=== PATIENT | female | born 1975 | race Caucasian/White ===

== ENCOUNTER 2017-01-03 18:58 | Inpatient (IN) | payer SELFPAY ==
[~2017-01-03] VITALS: Ht 156.2 cm; Wt 62.8 kg
[2017-01-03 23:20] VITALS: BP 178/92; PULSE 54; RESP 20; TEMP 98.1; O2SAT 99
[2017-01-03] MEDS ORDERED: NALOXONE HCL 0.4 MG/ML AMP IV PUSH PRN (23:30)
[2017-01-03] MEDS ORDERED: MORPHINE SULFATE 4 MG/ML INJ IV PUSH PRN (23:30)
[2017-01-03] MEDS ORDERED: SODIUM CHLORIDE 0.9% FLUSH 10 ML FLUSH IV FLUSH PRN (23:30)
[2017-01-03] MEDS ORDERED: ONDANSETRON HCL 4 MG/2 ML VIAL IVP PRN (23:30)
--- NOTE | 2017-01-03 23:32 | HHI.HP ---
HPI Service [facility] Primary Care Physician No Primary Care Physician Admission Diagnosis Diagnoses: Chief Complaint: left flank pain Travel History International Travel<30 Days: No Contact w/Intl Traveler <30 Da: No History of Present Illness 41 y/o female with a history of HTN (not on any medications), and self cathing for 20 years presented to the ED with complaints of left flank pain. Patient is Greek speaking, interpretation provided by her son in law. She states the pain is intermittent 10/10 in her left flank that radiates to her back. When the pain is really bad it causes her to be short of breath. She states the Dilaudid helped more with the pain then the morphine. She is from [place] and states after she had her son 20 years ago she had a kidney stone removed and was unable to urinate. She was told to straight cath and that was all she knows, she states she was never given a true diagnosis or reason on why she could not urinate. She denies any chest pain, sob, fever or chills. She does complain of dysuria at times when she straight caths. Review of Systems Except as stated in HPI: all other systems reviewed are Neg Past Family Social History Past Medical History HTN (not on any medication) Past Surgical History Appendectomy Kidney stone removal Reported Medications Reported Meds & Active Scripts Active No Active Prescriptions or Reported Medications Allergies: Coded Allergies: No Known Allergies (Unverified , 01/03/17) Active Ordered Medications Current Medications Medications (Trade) Dose Ordered Sig/Aakash Route Start Time Stop Time Status Last Admin (NS Flush) 2 ml UNSCH PRN IV FLUSH 01/03/17 23:30 (NS Flush) 2 ml BID IV FLUSH 01/04/17 09:00 (Zofran Inj) 4 mg Q6H PRN IVP 01/03/17 23:30 (Narcan Inj) 0.4 mg UNSCH PRN IV PUSH 01/03/17 23:30 Ceftriaxone Sodium 1000 mg/ Sodium Chloride 100 ml @ 200 mls/hr Q24H IV 01/04/17 19:00 (Flu (Quadrivalent) Vaccine Inj) 0.5 ml ONCE ONCE IM 01/05/17 10:00 01/05/17 10:01 (Dilaudid Pf Inj) 0.2 mg Q4H PRN IV PUSH 01/04/17 01:00 Family History Mom and dad: Heart disease and DM Social History Tobacco use: Cigars occasionally Alcohol use: Denies Physical Exam Vital Signs Vital Signs Date Time Temp Pulse Resp B/P (MAP) Pulse Ox O2 Delivery O2 Flow Rate FiO2 01/03/17 23:20 98.1 54 20 178/92 (120) 99 Physical Exam GENERAL: This is a well-nourished, well-developed patient, in mild amount of pain SKIN: No rashes, ecchymoses or lesions. Cool and dry. HEAD: Atraumatic. Normocephalic. EYES: Pupils equal round and reactive. ENT: Nose without bleeding, purulent drainage or septal hematoma.Airway patent. NECK: Trachea midline. No JVD or lymphadenopathy. Supple, nontender, no meningeal signs. CARDIOVASCULAR: Regular rate and rhythm without murmurs, gallops, or rubs. RESPIRATORY: Clear to auscultation. Breath sounds equal bilaterally. No wheezes , rales, or rhonchi. GASTROINTESTINAL: Abdomen soft, non-tender, nondistended. Left CVA tenderness MUSCULOSKELETAL: Extremities without clubbing, cyanosis, or edema. Negative Homans sign bilaterally. NEUROLOGICAL: Awake and alert. Motor and sensory grossly within normal limits. Normal speech. Caprini VTE Risk Assessment Caprini VTE Risk Assessment: No/Low Risk (score <= 1) Caprini Risk Assessment Model Point Value = 1 Point Value = 2 Point Value = 3 Point Value = 5 Age 41-60 Minor surgery BMI > 25 kg/m2 Swollen legs Varicose veins or History of unexplained or recurrent spontaneous Oral contraceptives or hormone replacement Sepsis (< 1 month) Serious lung disease, including pneumonia (< 1 month) Abnormal pulmonary function Acute myocardial infarction Congestive heart failure (< 1 month) History of inflammatory bowel disease Medical patient at bed rest Age 61-74 Arthroscopic surgery Major open surgery (> 45 min) Laparoscopic surgery (> 45 min) Malignancy Confined to bed (> 72 hours) Immobilizing plaster cast Central venous access Age >= 75 History of VTE Family history of VTE Factor V Leiden Prothrombin [id number] Lupus anticoagulant Anticardiolipin antibodies Elevated serum homocysteine Heparin-induced thrombocytopenia Other congenital or acquired thrombophilia Stroke (< 1 month) Elective arthroplasty Hip, pelvis, or leg fracture Acute spinal cord injury (< 1 month) Prophylaxis Regimen Total Risk Factor Score Risk Level Prophylaxis Regimen 0-1 Low Early ambulation 2 Moderate Order ONE of the following: *Sequential Compression Device (SCD) *Heparin 5000 units SQ BID 3-4 Higher Order ONE of the following medications: *Heparin 5000 units SQ TID *Enoxaparin/Lovenox 40 mg SQ daily (WT < 150 kg, CrCl > 30 mL/min) *Enoxaparin/Lovenox 30 mg SQ daily (WT < 150 kg, CrCl > 10-29 mL/min) *Enoxaparin/Lovenox 30 mg SQ BID (WT < 150 kg, CrCl > 30 mL/min) AND/OR *Sequential Compression Device (SCD) 5 or more Highest Order ONE of the following medications: *Heparin 5000 units SQ TID (Preferred with Epidurals) *Enoxaparin/Lovenox 40 mg SQ daily (WT < 150 kg, CrCl > 30 mL/min) *Enoxaparin/Lovenox 30 mg SQ daily (WT < 150 kg, CrCl > 10-29 mL/min) *Enoxaparin/Lovenox 30 mg SQ BID (WT < 150 kg, CrCl > 30 mL/min) AND *Sequential Compression Device (SCD) Assessment and Plan Problem List: (1) Acute kidney injury ICD Code: N17.9 - Acute kidney failure, unspecified (2) Hydronephrosis ICD Code: N13.30 - Unspecified hydronephrosis (3) HTN (hypertension) ICD Code: I10 - Essential (primary) hypertension Assessment and Plan 41 y/o female with a history of HTN (not on any medications), and self cathing for 20 years presented to the ED with complaints of left flank pain. Hydronephrosis, questionable bladder malignancy Abdominal CT reviewed and shows abnormal bladder, possible malignancy with dilation of ureter on the left and hydronephrosis. -Consult urology for recommendations -Pain management with IV Dilaudid -Cont to self cath Acute kidney injury, creatine 1.7, unknown baseline -IVF for hydration -Labs in AM UTI, suspect ecoli, abnormal UA with moderate leukocyte esterase -Rocephin IV -Urine culture pending HTN, chronic, uncontrolled, patient is not on any medications, possibly pain related -When pain is controlled, re evaluate for hypertensive medications DVT prophylaxis: SCDs Discussed Condition With Patient, RN and patients son in law Physician Certification 2 Midnight Certification Type: Admission for Inpatient Services Order for Inpatient Services The services are ordered in accordance with Medicare regulations or non- Medicare payer requirements, as applicable. In the case of services not specified as inpatient-only, they are appropriately provided as inpatient services in accordance with the 2-midnight benchmark. Estimated LOS (days): 3 days is the estimated time the patient will need to remain in the hospital, assuming treatment plan goals are met and no additional complications. Post-Hospital Plan: Home Kailee Valencia Jan 03, 2017 23:32
[2017-01-04] MEDS: SODIUM CHLOR 0.9% 1000 ML INJ 1,000 ML IV SCH ×3 (02:01→21:01)
[2017-01-04] MEDS: HYDROmorphone HCL PF 1 MG/ML VIAL IV PUSH PRN ×4 (02:02→17:40)
[2017-01-04 05:26] VITALS: BP 159/76; PULSE 64; RESP 17; TEMP 97.8; O2SAT 98
[2017-01-04 06:58] LABS: ALKALINE PHOSPHATASE 71 U/L (45-117); ALT (GPT) 18 U/L (10-53); TOTAL BILIRUBIN ADULT 0.3 MG/DL (0.2-1.0)
[2017-01-04 07:01] LABS: AST (GOT) 26 U/L (15-37); BICARBONATE 23.7 MEQ/L (21.0-32.0); BLOOD UREA NITROGEN 15 MG/DL (7-18); CHLORIDE 108 MEQ/L (98-107); GLOMERULAR FILTRATION RATE 37 ML/MIN (>89); POTASSIUM 4.9 MEQ/L (3.5-5.1); SODIUM (NA) 136 MEQ/L (136-145)
[2017-01-04 07:03] LABS: ANION GAP 4 MEQ/L (5-15)
[2017-01-04 07:15] LABS: AUTOMATED NEUTROPHIL # 4.7 TH/MM3 (1.8-7.7); BASOPHIL # 0.1 TH/MM3 (0-0.2); EOSINOPHIL # 0.4 TH/MM3 (0-0.4); EOSINOPHIL % 4.1 % (0.0-4.0); HEMATOCRIT 42.5 % (35.0-46.0); HEMO FLAGS DIFF FINAL; LYMPH % 33.4 % (9.0-44.0); MEAN CELL VOLUME 87.9 FL (80.0-100.0); MEAN CORPUSCULAR HEMOGLOBIN 29.6 PG (27.0-34.0); MEAN CORPUSCULAR HGB CONC 33.7 % (32.0-36.0); MONO % 9.7 % (0.0-8.0); NEUT % 51.8 % (16.0-70.0); PLATELET COUNT 251 TH/MM3 (150-450); RED BLOOD COUNT 4.83 MIL/MM3 (4.00-5.30); RED CELL DISTRIBUTION WIDTH 13.4 % (11.6-17.2)
[2017-01-04 07:58] VITALS: BP 148/87; PULSE 54; RESP 20; TEMP 98; O2SAT 98
[2017-01-04] MEDS: SODIUM CHLORIDE 0.9% FLUSH 10 ML FLUSH IV FLUSH SCH ×2 (09:00→21:01)
--- NOTE | 2017-01-04 10:48 | PD.CONS ---
HPI Service Urology Consult Requested By Kailee Valencia NP Reason for Consult Abnormal findings on CT scan Primary Care Physician No Primary Care Physician Diagnosis: (1) Acute kidney injury ICD Code: N17.9 - Acute kidney failure, unspecified (2) Hydronephrosis ICD Code: N13.30 - Unspecified hydronephrosis (3) HTN (hypertension) ICD Code: I10 - Essential (primary) hypertension History of Present Illness 41-year-old female with history hypertension and neurogenic bladder dysfunction was been managed with clean intermittent catheterization up to 4 times daily for the past 20 years who presented to the emergency room with acute onset left flank pain. Workup included a CT scan that demonstrated marketed right hydroureteronephrosis, mild left hydroureteronephrosis and bladder wall thickening. No definitive stones were seen. Patient was admitted for analgesic support and a urology consult placed to dressed the CT scan findings. Upon further questioning the patient reports that she had been worked up by a urologist for her voiding dysfunction and was diagnosed with neurogenic bladder dysfunction related to pathology involving her back. She has been able to easily perform clean intermittent catheterization 3-4 times daily over the past 20 years. She does have a history of renal lithiasis. She denies gross hematuria. Has been afebrile. Review of Systems Constitutional: DENIES: Fever, Night Sweats Cardiovascular: DENIES: Chest pain Gastrointestinal: COMPLAINS OF: Abdominal pain (left side) Genitourinary: DENIES: Hematuria Musculoskeletal: COMPLAINS OF: Back pain (bilateral but more intense on the left) Except as stated in HPI: all other systems reviewed are Neg Past Family Social History Past Medical History Neurogenic bladder Nephrolithiasis Hypertension Past Surgical History Status post kidney stone removal Reported Medications Refer to EMR Allergies: Coded Allergies: No Known Allergies (Unverified , 01/03/17) Active Ordered Medications Refer to EMR Family History Coronary artery disease Diabetes mellitus Social History Smokes cigars occasionally Denies alcohol use Denies illicit drug abuse Physical Exam Vital Signs Date Time Temp Pulse Resp B/P (MAP) Pulse Ox O2 Delivery O2 Flow Rate FiO2 01/04/17 07:58 98.0 54 20 148/87 (107) 98 01/04/17 05:26 97.8 64 17 159/76 (103) 98 01/03/17 23:20 98.1 54 20 178/92 (120) 99 Physical Exam GENERAL: This is a well-nourished, well-developed patient, in no apparent distress. SKIN: No rashes, ecchymoses or lesions. Cool and dry. HEAD: Atraumatic. Normocephalic. No temporal or scalp tenderness. EYES: Pupils equal round and reactive. Extraocular motions intact. No scleral icterus. No injection or drainage. ENT: Nose without bleeding, purulent drainage or septal hematoma. Throat without erythema, tonsillar hypertrophy or exudate. Uvula midline. Airway patent. NECK: Trachea midline. No JVD or lymphadenopathy. Supple, nontender, no meningeal signs. GASTROINTESTINAL: Abdomen soft, non-tender, nondistended. No hepato-splenomegaly , or palpable masses. No guarding. GENITOURINARY: No CVA tenderness MUSCULOSKELETAL: Extremities without clubbing, cyanosis, or edema. No joint tenderness, effusion, or edema noted. No calf tenderness. Negative Homans sign bilaterally. NEUROLOGICAL: Awake and alert. Cranial nerves II through XII intact. Motor and sensory grossly within normal limits. Five out of 5 muscle strength in all muscle groups. Normal speech. Lab results reviewed: Yes Laboratory Tests Test 01/04/17 05:36 White Blood Count 9.0 Red Blood Count 4.83 Hemoglobin 14.3 Hematocrit 42.5 Mean Corpuscular Volume 87.9 Mean Corpuscular Hemoglobin 29.6 Mean Corpuscular Hemoglobin Concent 33.7 Red Cell Distribution Width 13.4 Platelet Count 251 Mean Platelet Volume 9.7 Neutrophils (%) (Auto) 51.8 Lymphocytes (%) (Auto) 33.4 Monocytes (%) (Auto) 9.7 Eosinophils (%) (Auto) 4.1 Basophils (%) (Auto) 1.0 Neutrophils # (Auto) 4.7 Lymphocytes # (Auto) 3.0 Monocytes # (Auto) 0.9 Eosinophils # (Auto) 0.4 Basophils # (Auto) 0.1 CBC Comment DIFF FINAL Differential Comment Hematology Comments Blood Urea Nitrogen 15 Creatinine 1.55 Random Glucose 83 Total Protein 7.0 Albumin 3.0 Calcium Level 8.6 Alkaline Phosphatase 71 Aspartate Amino Transf (AST/SGOT) 26 Alanine Aminotransferase (ALT/SGPT) 18 Total Bilirubin 0.3 Sodium Level 136 Potassium Level 4.9 Chloride Level 108 Carbon Dioxide Level 23.7 Anion Gap 4 Estimat Glomerular Filtration Rate 37 Result Diagram: 01/04/17 0536 01/04/17 0536 Personally reviewed images: Yes Assessment and Plan Assessment and Plan Urologic impression: #1 bilateral hydroureteronephrosis, more significant on the right in comparison to the left #2 right hydroureteronephrosis appears to be chronic in nature #3 neurogenic bladder dysfunction #4 bladder wall thickening likely related to the neurogenic bladder dysfunction Plan: #1 keep patient nothing by mouth #2 patient scheduled for cystoscopy, bilateral retrograde pyelogram studies and bilateral ureteral stent placement today Lon Garcia MD Jan 04, 2017 10:48
[2017-01-04 11:59] VITALS: BP 178/92; PULSE 60; RESP 20; TEMP 98.4; O2SAT 96
[2017-01-04] MEDS ORDERED: ROCURONIUM INJ 50 MG/5 ML SYRINGE IV PUSH ONE (12:00)
[2017-01-04] MEDS ORDERED: IOHEXOL 300 MG/ML 50 ML BTL (for RAD DIAG) OTHER ONE (12:00)
[2017-01-04] MEDS ORDERED: PROPOFOL 200 MG/20 ML AMP IV ONE (12:00)
[2017-01-04] MEDS ORDERED: LIDOCAINE HCL 1% PF 5 ML AMPULE OTHER ONE (12:00)
[2017-01-04] MEDS ORDERED: ESMOLOL HCL 100 MG/10 ML VIAL IV ONE (12:00)
[2017-01-04] MEDS ORDERED: ePHEDrine/NS 50 MG/5 ML SYR IV ONE (12:00)
[2017-01-04] MEDS ORDERED: ONDANSETRON HCL 4 MG/2 ML VIAL IV PUSH ONE (12:00)
[2017-01-04] MEDS ORDERED: MIDAZOLAM HCL 2 MG/2 ML VIAL IV ONE (12:00)
[2017-01-04] MEDS ORDERED: DEXAMETHASONE SOD PHOS 4 MG/ML VIAL IV ONE (12:00)
[2017-01-04] MEDS ORDERED: PHENYLEPH/NS 1000 MCG/10 ML SYR IV ONE (12:00)
[2017-01-04] MEDS ORDERED: LACTATED RINGER'S 1000 ML IV PRN (12:30)
[2017-01-04] MEDS ORDERED: INSULIN HUMAN REGULAR 1,000 UNITS/10 ML VIAL SQ PRN (12:30)
[2017-01-04] MEDS ORDERED: METOPROLOL TARTRATE 25 MG TAB PO PRN (12:30)
[2017-01-04] MEDS ORDERED: CHLORHEXIDINE GLUCONATE 2 % 1 PACK (2 CLOTHS) TOPICAL PRN (12:30)
[2017-01-04] MEDS ORDERED: SODIUM CHLORID 0.9% 500 ML IV PRN (12:30)
[2017-01-04] MEDS ORDERED: POVIDONE IODINE 5% (ANTISEPSIS KIT) 4 APPLICATIONS EACH NARE PRN (12:30)
[2017-01-04] MEDS ORDERED: ceFAZolin INJ 1,000 MG VIAL ONE (13:53)
[2017-01-04] MEDS ORDERED: DO NOT ADM ANY ANTICOAGULANT DRUGS PRN (16:25)
[2017-01-04] MEDS ORDERED: *MEPERIDINE 25 MG INJ VIAL PERIprocedural Use ONLY ONE (16:30)
--- NOTE | 2017-01-04 16:30 | PD.OP ---
Operative Report Date of Surgery: Jan 04, 2017 Preoperative Diagnosis: (1) Hydronephrosis, bilateral Postoperative Diagnosis: (1) Hydronephrosis, right Procedure: Cystoscopy, bilateral retrograde pyelogram studies, right ureteroscopy and placement of a terminal gauger supervisor right ureteral stent Anesthesia: General Surgeon: Lon Garcia Candy Decorator(s): None Operation and Findings: Indication for procedure: Case of a pleasant 41-year-old female with history of neurogenic bladder dysfunction for greater than 20 years who presented to the emergency room with acute onset left flank pain. Workup included a CT scan that demonstrated bilateral hydroureteronephrosis markedly worse on the patient' s right side. Presents now for further urologic workup to include cystoscopy, bilateral retrograde pyelogram studies and possible bilateral ureteral stent placement. Operative procedure in detail: Patient was brought to the operating suite and placed supine on the OR table. She was then placed under general anesthesia. She was then repositioned in the dorsolithotomy position and prepped and draped in normal sterile fashion. After appropriate timeout was undertaken I proceeded with attempted cystoscopic evaluation utilizing the rigid cystoscope with the 20 Ugandan sheath. There was some resistance met at the urethral meatus and thus I proceeded with sequentially dilating the urethra utilizing female sounds starting at 16 Ugandan and sequentially dilating to 24 Ugandan. I was then easily able to advance the 20 Ugandan cystoscope sheath with the obturator in place. The obturator was then exchanged for the 30 lens and cystoscopic evaluation was performed. There was clear reflux of urine noted from the left ureteral orifice and no reflux noted on the right side. The bladder itself was markedly trabeculated with cellule formation. I proceeded with performing a left retrograde utilizing a 6 Ugandan open-ended ureteral catheter. There was prompt filling and drainage of the left collecting system and no evidence of hydronephrosis. I then proceeded with performing a prescription ON the right side and the patient was noted to have marketed hydroureteronephrosis with minimal drainage of the collecting system. I next attempted to pass a guidewire up to the right renal pelvis however due to the tortuosity of the proximal ureter this cannot be accomplished. I then utilized the flexible ureteroscope and facilitated passes by using a ureteral access sheath placed over the wire. I was then able to negotiate the tortuosity of the proximal ureter with the ureteroscope and further advanced scope into the right renal pelvis. No abnormalities were noted other than the dilation of the ureter and renal collecting system. I then placed a Amplatz stiff wire through the ureteroscope with a soft and within the right renal pelvis and gently withdrew the flexible ureteroscope and access sheath. I then backloaded the wire through the cystoscope and placed a terminal gauger supervisor 28 cm 6 Ugandan double-J stent under both cystoscopic and fluoroscopic guidance. Once the stent was in proper position the trailing string was removed. The urine itself evacuated from the right collecting system was hyacinth in color and did not appear to be infected. A 16 Ugandan 10 cc Cuevas catheter was next placed and connected to gravity drainage. The patient tolerated the procedures without complications and was transferred to the PACU in satisfactory condition. Lon Garcia MD Jan 04, 2017 16:30
[2017-01-04] MEDS ORDERED: CEPH-459 PO (16:33)
--- NOTE | 2017-01-04 16:37 | HHI.PR ---
Subjective Remarks patient is sp stent placement denies nausea c/o severe lower abdominal pain and discomfort BP noted top be elevated Objective Vitals Vital Signs Date Time Temp Pulse Resp B/P (MAP) Pulse Ox O2 Delivery O2 Flow Rate FiO2 01/04/17 11:59 98.4 60 20 178/92 (120) 96 01/04/17 07:58 98.0 54 20 148/87 (107) 98 01/04/17 05:26 97.8 64 17 159/76 (103) 98 01/03/17 23:20 98.1 54 20 178/92 (120) 99 I/O 01/03/17 01/03/17 01/03/17 01/04/17 01/04/17 01/04/17 07:00 15:00 23:00 07:00 15:00 23:00 Intake Total 430 ml 600 ml Output Total 0 ml Balance 430 ml 600 ml Intake IV Total 430 ml Other 600 ml Output Estimated Blood Loss 0 ml Result Diagram: 01/04/17 0536 01/04/17 0536 Objective Remarks AAOx3, moderate distress due to pain Clear lungs bilaterally S1-S2 present with regular rate and rhythm, no murmurs rubs or gallops Abdomen is soft, distended, tender to palpation of the lower abdomen No edema in lower extremities and palpable pedal pulses. Medications and IVs Current Medications Medications (Trade) Dose Ordered Sig/Akaash Route Start Time Stop Time Status Last Admin (NS Flush) 2 ml UNSCH PRN IV FLUSH 01/03/17 23:30 (NS Flush) 2 ml BID IV FLUSH 01/04/17 09:00 (Zofran Inj) 4 mg Q6H PRN IVP 01/03/17 23:30 (Narcan Inj) 0.4 mg UNSCH PRN IV PUSH 01/03/17 23:30 Ceftriaxone Sodium 1000 mg/ Sodium Chloride 100 ml @ 200 mls/hr Q24H IV 01/04/17 19:00 (Flu (Quadrivalent) Vaccine Inj) 0.5 ml ONCE ONCE IM 01/05/17 10:00 01/05/17 10:01 (Dilaudid Pf Inj) 0.2 mg Q4H PRN IV PUSH 01/04/17 01:00 01/04/17 17:40 Sodium Chloride 1,000 ml @ 100 mls/hr Q10H IV 01/04/17 01:15 01/04/17 11:15 Lactated Ringer's 1,000 ml @ 30 mls/hr Q24H PRN IV 01/04/17 12:30 01/07/17 12:29 Sodium Chloride 500 ml @ 30 mls/hr [id number] PRN IV 01/04/17 12:30 01/07/17 12:29 (Lopressor) 25 mg SENIOR INSTRUCTOR PRN PO 01/04/17 12:30 01/07/17 12:29 (Betadine 5% Antisepsis Kit) 1 applic SENIOR INSTRUCTOR PRN EACH NARE 01/04/17 12:30 01/07/17 12:29 (Chlorhexidine 2% Cloth) 3 pack SENIOR INSTRUCTOR PRN TOPICAL 01/04/17 12:30 01/07/17 12:29 (NovoLIN R INJ) See Protocol Table ... SENIOR INSTRUCTOR PRN SQ 01/04/17 12:30 01/07/17 12:29 Miscellaneous Information ALL NURSING DEPARTME... UNSCH PRN .XX 01/04/17 16:25 01/05/17 16:24 Urinary Catheter: Yes Assessment to: Continue Cuevas insert reason: Obstruction/Retention A/P Problem List: (1) Acute kidney injury ICD Code: N17.9 - Acute kidney failure, unspecified (2) Hydronephrosis ICD Code: N13.30 - Unspecified hydronephrosis (3) HTN (hypertension) ICD Code: I10 - Essential (primary) hypertension Assessment and Plan 41 y/o female with a history of HTN (not on any medications), and self cathing for 20 years presented to the ED with complaints of left flank pain. Hydronephrosis, questionable bladder malignancy Abdominal CT reviewed and shows abnormal bladder, possible malignancy with dilation of ureter on the left and hydronephrosis. -Started on IV Dilaudid for pain management. 01/04 patient is status post cystoscopy, bilateral retrograde pyelograms studies, right urethroscopy and placement of a long-term right ureteral stent. I will add Percocet for pain control. Continue IV Dilaudid for breakthrough pain. Acute kidney injury, creatine 1.5, unknown baseline -IVF for hydration -Follow-up BMP. UTI, suspect ecoli, abnormal UA with moderate leukocyte esterase -Rocephin IV -Urine culture pending HTN, chronic, uncontrolled, patient is not on any medications, possibly pain related - I will start the patient on amlodipine 5 mg by mouth daily. DVT prophylaxis: SCDs Discharge Planning Possible discharge in a.m. pending pain control and the stabilization of blood pressure. Last Simental MD Jan 04, 2017 16:37
[2017-01-04] MEDS ORDERED: HYDROmorphone HCL PF 1 MG/ML VIAL IV PUSH PRN ×2 (18:30→22:30)
[2017-01-04] MEDS ORDERED: HYDROmorphone HCL PF 1 MG/ML VIAL IV PUSH ONE (18:45)
[2017-01-04] MEDS ORDERED: cefTRIAXone INJ 1,000 MG in SODIUM CHLORIDE 0.9% INJ 100 ML IV SCH (19:00)
[2017-01-04] MEDS: amLODIPine BESYLATE 5 MG TAB PO SCH (19:30)
[2017-01-04] MEDS: ACETAMINOPHEN/HYDROcodone 325 MG/5 MG TAB PO PRN ×2 (19:46→23:31)
[2017-01-04 20:42] VITALS: BP 113/63; PULSE 76; RESP 17; TEMP 98; O2SAT 96
[2017-01-04 20:56] VITALS: O2SAT 96
[2017-01-05 00:34] VITALS: BP 146/88; PULSE 63; RESP 17; TEMP 98.4; O2SAT 98
[2017-01-05] MEDS: ACETAMINOPHEN/HYDROcodone 325 MG/5 MG TAB PO PRN ×3 (04:25→14:45)
[2017-01-05 04:51] VITALS: BP 161/82; PULSE 58; RESP 17; TEMP 97.7; O2SAT 95
[2017-01-05] MEDS: SODIUM CHLOR 0.9% 1000 ML INJ 1,000 ML IV SCH ×2 (05:31→14:45)
[2017-01-05 08:14] VITALS: BP 138/80; PULSE 63; RESP 20; TEMP 98.1; O2SAT 97
[2017-01-05] MEDS: SODIUM CHLORIDE 0.9% FLUSH 10 ML FLUSH IV FLUSH SCH (09:00)
[2017-01-05] MEDS: amLODIPine BESYLATE 5 MG TAB PO SCH (09:10)
[2017-01-05] MEDS ORDERED: INFLUENZA VIRUS VACCINE (QUADRIVALENT) 0.5 ML SYR IM ONE (10:00)
[2017-01-05 11:56] VITALS: BP_SYST 130; BP_SYST 154; BP_DIAS 70; BP_DIAS 85; PULSE 105; PULSE 64; RESP 20; TEMP 97.6; TEMP 98.4; O2SAT 91; O2SAT 98
--- NOTE | 2017-01-05 12:03 | HHI.PR ---
Subjective Patient symptoms today Reports pain much better today. Cuevas catheter has been draining well with no issues according to patient. Objective Vital Signs Vital Signs Date Time Temp Pulse Resp B/P (MAP) Pulse Ox O2 Delivery O2 Flow Rate FiO2 01/05/17 08:14 98.1 63 20 138/80 (99) 97 01/05/17 04:51 97.7 58 17 161/82 (108) 95 01/05/17 00:34 98.4 63 17 146/88 (107) 98 01/04/17 20:56 96 01/04/17 20:42 98.0 76 17 113/63 (80) 96 01/04/17 16:45 97.5 65 16 144/82 (102) 98 Room Air 01/04/17 16:30 82 16 164/87 (112) 99 Nasal Cannula 2 01/04/17 16:25 97.5 85 20 177/84 (115) 96 Nasal Cannula 2 01/04/17 11:59 98.4 60 20 178/92 (120) 96 Intake & Output 01/05/17 01/05/17 07:00 19:00 Intake Total 2473 ml Output Total 1200 ml Balance 1273 ml Intake Oral 480 ml IV Total 1993 ml Output Urine Total 1200 ml Result Diagram: 01/04/17 0536 01/04/17 0536 Objective Remarks No CVA tenderness. Cuevas catheter in place draining clear yellow urine. Abdomen soft, nondistended, nontender. Medications and IVs Current Medications Medications (Trade) Dose Ordered Sig/Aakash Route Start Time Stop Time Status Last Admin (NS Flush) 2 ml UNSCH PRN IV FLUSH 01/03/17 23:30 (NS Flush) 2 ml BID IV FLUSH 01/04/17 09:00 (Zofran Inj) 4 mg Q6H PRN IVP 01/03/17 23:30 (Narcan Inj) 0.4 mg UNSCH PRN IV PUSH 01/03/17 23:30 Ceftriaxone Sodium 1000 mg/ Sodium Chloride 100 ml @ 200 mls/hr Q24H IV 01/04/17 19:00 01/04/17 17:51 Sodium Chloride 1,000 ml @ 100 mls/hr Q10H IV 01/04/17 01:15 01/05/17 05:31 Lactated Ringer's 1,000 ml @ 30 mls/hr Q24H PRN IV 01/04/17 12:30 01/07/17 12:29 Sodium Chloride 500 ml @ 30 mls/hr [id number] PRN IV 01/04/17 12:30 01/07/17 12:29 (Lopressor) 25 mg TRAIN DIRECTOR PRN PO 01/04/17 12:30 01/07/17 12:29 (Betadine 5% Antisepsis Kit) 1 applic TRAIN DIRECTOR PRN EACH NARE 01/04/17 12:30 01/07/17 12:29 (Chlorhexidine 2% Cloth) 3 pack TRAIN DIRECTOR PRN TOPICAL 01/04/17 12:30 01/07/17 12:29 (NovoLIN R INJ) See Protocol Table ... TRAIN DIRECTOR PRN SQ 01/04/17 12:30 01/07/17 12:29 Miscellaneous Information ALL NURSING DEPARTME... UNSCH PRN .XX 01/04/17 16:25 01/05/17 16:24 (Norvasc) 5 mg DAILY PO 01/04/17 18:30 01/05/17 09:10 (Lee 5-325 Mg) 1 tab Q4H PRN PO 01/04/17 18:30 01/05/17 09:10 (Lee 5-325 Mg) 2 tab Q4H PRN PO 01/04/17 18:30 01/05/17 04:25 (Dilaudid Pf Inj) 0.5 mg Q4H PRN IV PUSH 01/04/17 22:30 Assessment and Plan Assessment and Plan Urologic impression: #1 Symptoms improved. No evidence of left ureteral obstruction. Recent development of left flank pain possibly related to past calculus or referred pain from the right hydronephrosis. #2 right hydroureteronephrosis appears to be chronic in nature status post exterminator termite stent placement yesterday #3 neurogenic bladder dysfunction #4 bladder wall thickening related to the neurogenic bladder dysfunction. Plan: #1 Okay to DC home from a perspective. #2 DC Cuevas catheter at time of hospital discharge and resume clean intermittent catheterization 4 times daily. #3 Office follow up with me within the next 2-3 weeks. Will need to reassess functional status of the right kidney. Patient to contact my office sometime this week to arrange date and time of visit [phone]. Lon Garcia MD Jan 05, 2017 12:03
[2017-01-05 12:51] LABS: BICARBONATE 22.6 MEQ/L (21.0-32.0); POTASSIUM 3.7 MEQ/L (3.5-5.1)
[2017-01-05 16:29] VITALS: BP 157/79; PULSE 69; RESP 20; TEMP 98; O2SAT 98
--- NOTE | 2017-01-05 17:30 | HHI.DCPOC ---
Discharge Care Plan Diagnosis: (1) Hydronephrosis (2) HTN (hypertension) (3) Acute kidney injury Goals to Promote Your Health * To prevent worsening of your condition and complications * To maintain your health at the optimal level Directions to Meet Your Goals Take your medications as prescribed Follow your dietary instruction Follow activity as directed Keep your appointments as scheduled Take your immunizations and boosters as scheduled If your symptoms worsen call your PCP, if no PCP go to Urgent Care Center or Emergency Room Smoking is Dangerous to Your Health. Avoid second hand smoke Call the 24-hour hour crisis hotline for domestic abuse at Last Simental MD Jan 05, 2017 17:30
[2017-01-05] MEDS ORDERED: AMLO5 PO (17:37)
[2017-01-05] MEDS ORDERED: HYDR-3516 PO (17:37)
--- NOTE | 2017-01-05 17:40 | HHI.DS ---
Discharge Summary Admission Date Jan 03, 2017 at 23:10 Discharge Date: Jan 05, 2017 Admitting Diagnosis (1) Acute kidney injury ICD Code: N17.9 - Acute kidney failure, unspecified (2) Hydronephrosis ICD Code: N13.30 - Unspecified hydronephrosis (3) HTN (hypertension) ICD Code: I10 - Essential (primary) hypertension Brief History - From Admission 41 y/o female with a history of HTN (not on any medications), and self cathing for 20 years presented to the ED with complaints of left flank pain. Patient is Bulgarian speaking, interpretation provided by her son in law. She states the pain is intermittent 10/10 in her left flank that radiates to her back. When the pain is really bad it causes her to be short of breath. She states the Dilaudid helped more with the pain then the morphine. She is from [place] and states after she had her son 20 years ago she had a kidney stone removed and was unable to urinate. She was told to straight cath and that was all she knows, she states she was never given a true diagnosis or reason on why she could not urinate. She denies any chest pain, sob, fever or chills. She does complain of dysuria at times when she straight caths. CBC/BMP: 01/04/17 0536 01/05/17 1140 Significant Findings Laboratory Tests Test 01/04/17 05:36 01/05/17 11:40 Monocytes (%) (Auto) 9.7 % (0.0-8.0) Eosinophils (%) (Auto) 4.1 % (0.0-4.0) Creatinine 1.55 MG/DL (0.50-1.00) 1.49 MG/DL (0.50-1.00) Albumin 3.0 GM/DL (3.4-5.0) Chloride Level 108 MEQ/L (98-107) 108 MEQ/L (98-107) Anion Gap 4 MEQ/L (5-15) Estimat Glomerular Filtration Rate 37 ML/MIN (>89) 38 ML/MIN (>89) PE at Discharge AAOx3, moderate distress due to pain Clear lungs bilaterally S1-S2 present with regular rate and rhythm, no murmurs rubs or gallops Abdomen is soft, distended, tender to palpation of the lower abdomen No edema in lower extremities and palpable pedal pulses. Pt Condition on Discharge: Stable Discharge Disposition: Discharge Home Discharge Instructions DIET: Follow Instructions for: Heart Healthy Diet Activities you can perform: Regular-No Restrictions Activities to Avoid: Contact Sports, Strenuous Activity Last Simental MD Jan 05, 2017 17:40
== END 2017-01-05 18:31 | disposition home or self-care (01) | DRG 683 ==
LOC: NEDDLT 23:00 → N05A 23:10
PROVIDERS: ADMIT Hospitalist; ATTEND Hospitalist
PROC: BT141ZZ Fluoroscopy of Kidneys, Ureters and Bladder using Low Osmolar Contrast (ICD-10-PCS; 2017-01-04)
PROC: 0T768DZ Dilation of Right Ureter with Intraluminal Device, Via Natural or Artificial Opening Endoscopic (ICD-10-PCS; principal; 2017-01-04 13:54)
DX: N17.9 Acute kidney failure, unspecified (principal); N39.0 Urinary tract infection, site not specified; N31.9 Neuromuscular dysfunction of bladder, unspecified; I10 Essential (primary) hypertension; N13.30 Unspecified hydronephrosis; Z87.442 Personal history of urinary calculi; Z72.0 Tobacco use; Z23 Encounter for immunization
CPT/HCPCS: 74176; 74420; 80048; 80053; 81001; 83690; 84702; 85025; 87077; 87086; 87186; 90686; 96374; 96375; C1769; J0690; J0696; J1100; J1170; J2175; J2250; J2270; J2370; J2405; J3010; J7030; Q2038; Q9967

== ENCOUNTER 2017-03-07 15:50 | Emergency (ER) | payer SELFPAY ==
[~2017-03-07] VITALS: Ht 157.5 cm; Wt 62.0 kg
[~2017-03-07 15:50] MED LIST: AMLO5 PO; CEPH-459 PO; HYDR-3516 PO
[2017-03-07 15:51] VITALS: BP 154/78; PULSE 74; RESP 16; TEMP 99.1; O2SAT 99
--- NOTE | 2017-03-07 16:59 | PD ---
HPI Chief Complaint: Complaint Time Seen by Provider: 16:37 Travel History International Travel<30 days: No Contact w/Intl Traveler<30days: No Traveled to known affect area: No History of Present Illness HPI PATIENT WAS ADMITTED AND CARED FOR BY DR GARCIA BACK IN JAN 04, HAD HYDRONEPHROSIS AND PLACED MAINTENANCE MAN URETERAL STENT. THEY RETURN BECAUSE THEY HAVE BEEN UNABLE TO GET IN TOUCH WITH DR GARCIA OFFICE. SO THEY ARE HERE TO TRY AND GET STENT REMOVED. PATIENT HAS PAIN WHICH IS CHRONIC AND HAS HAD IT, DENIES FEVER/N/V/D/ABDPAIN AT THIS TIME....PT DENIES ALLEVIATING/AGGRAVATING FACTORS PFSH Past Medical History Cancer: Yes (BLADDER) Cardiovascular Problems: No High Cholesterol: Yes Diabetes: Yes (previously diabetic) Patient Takes Glucophage: No Diminished Hearing: No Hypertension: Yes Neurologic: No Reproductive: No Respiratory: No Immunizations Current: Yes Thyroid Disease: Yes ?: Not LMP: FEB 2017 Past Surgical History Abdominal Surgery: Yes (appendectomy) Appendectomy: Yes Social History Alcohol Use: No Tobacco Use: No Substance Use: No (THC) Allergies-Medications (Allergen,Severity, Reaction): Coded Allergies: No Known Allergies (Unverified , 01/09/17) Reported Meds & Prescriptions Reported Meds & Active Scripts Active No Active Prescriptions or Reported Medications Review of Systems Except as stated in HPI: all other systems reviewed are Neg General / Constitutional: No: Fever Eyes: No: Visual changes HENT: No: Headaches Cardiovascular: No: Chest Pain or Discomfort Respiratory: No: Shortness of Breath Gastrointestinal: No: Abdominal Pain Genitourinary: Positive: Flank Pain Musculoskeletal: No: Pain Skin: No Rash Neurologic: No: Weakness Psychiatric: No: Depression Endocrine: No: Polydipsia Hematologic/Lymphatic: No: Easy Bruising Physical Exam Narrative GENERAL: SKIN: Warm and dry. HEAD: Atraumatic. Normocephalic. EYES: Pupils equal and round. No scleral icterus. No injection or drainage. ENT: No nasal bleeding or discharge. Mucous membranes pink and moist. NECK: Trachea midline. No JVD. CARDIOVASCULAR: Regular rate and rhythm. RESPIRATORY: No accessory muscle use. Clear to auscultation. Breath sounds equal bilaterally. GASTROINTESTINAL: Abdomen soft, non-tender, nondistended. MUSCULOSKELETAL: Extremities without clubbing, cyanosis, or edema. No obvious deformities. NEUROLOGICAL: Awake and alert. No obvious cranial nerve deficits. Motor grossly within normal limits. Five out of 5 muscle strength in the arms and legs. Normal speech. PSYCHIATRIC: Appropriate mood and affect; insight and judgment normal. Data Data Last Documented VS Vital Signs Date Time Temp Pulse Resp B/P (MAP) Pulse Ox O2 Delivery O2 Flow Rate FiO2 03/07/17 15:51 99.1 74 16 154/78 (103) 99 Room Air Orders Orders Mandatory Outpatient Referral (03/07/17 17:02) Ketorolac Inj (Toradol Inj) (03/07/17 17:30) MDM Medical Decision Making Medical Screen Exam Complete: Yes Emergency Medical Condition: Yes Medical Record Reviewed: Yes Differential Diagnosis N/A Narrative Course PATIENT IS ESSENTIALLY HERE REQUESTING TO HAVE HER STENT REMOVED...NOT HER NEPHROSTOMY TUBE HAS BEEN WRITTEN....DISCUSSED CASE WITH DR SNYDER WHO RECC REFERRAL TO DR GARCIA [phone] Physician Communication Physician Communication DISCUSSED CASE WITH DR SNYDER WHO RECCOMENDED MANDATORY REFERRAL TO DR GARCIA AND TO CONTACT HIS OFFICE FOR FURTHER CARE AND FOLLOW UP Diagnosis Primary Impression: MEDICAL CLEARANCE Referrals: Lon Garcia MD Scripts No Active Prescriptions or Reported Meds Disposition: 01 DISCHARGE HOME Condition: Stable Pascual Wilde MD Mar 07, 2017 16:59
[2017-03-07] MEDS ORDERED: KETOROLAC TROMETHAMINE 30 MG/ML (IVP) VIAL IV PUSH ONE (17:30)
[2017-03-07] MEDS ORDERED: KETO10 PO (18:41)
[2017-03-07] MEDS ORDERED: HYDR-3583 PO (18:41)
== END 2017-03-07 18:40 | disposition home or self-care (01) ==
LOC: NEPE 15:50
DX: Z51.89 Encounter for other specified aftercare (principal); E78.00 Pure hypercholesterolemia, unspecified; E11.9 Type 2 diabetes mellitus without complications; I10 Essential (primary) hypertension; E07.9 Disorder of thyroid, unspecified
CPT/HCPCS: 96374; 99284; J1885